=== PATIENT | male | born 1975 | race Two or more races ===

== ENCOUNTER 2018-11-02 20:41 | Emergency (ER) | payer SELFPAY ==
[~2018-11-02] VITALS: Ht 177.8 cm; Wt 115.0 kg
[2018-11-02] MEDS ORDERED: LORAZEPAM 2MG/ML CPJ ONE (20:57)
[2018-11-02] MEDS ORDERED: LORAZEPAM 2MG/ML CPJ IM ONE ×2 (21:15→22:00)
[2018-11-02] MEDS ORDERED: OLANZAPINE 10 MG/VIAL IM ONE ×2 (21:15→22:00)
[2018-11-02 22:38] VITALS: BP 150/100
== END 2018-11-02 22:42 | disposition left against medical advice (07) ==
LOC: ER 20:41 → CANBEDREQ 11-03 00:18
DX: R55 Syncope and collapse (principal); G92 Toxic encephalopathy; I12.0 Hypertensive chronic kidney disease with stage 5 chronic kidney disease or end stage renal disease; E11.22 Type 2 diabetes mellitus with diabetic chronic kidney disease; N18.6 End stage renal disease; N17.9 Acute kidney failure, unspecified; Z99.2 Dependence on renal dialysis
CPT/HCPCS: 71045; 93005; 96372; 99284; J2060; J3490

== ENCOUNTER 2019-06-14 21:06 | Emergency (ER) | payer SELFPAY | END 2019-06-14 21:31 | disposition left against medical advice (07) | LOC: ER 21:06 | DX: Z53.21 Procedure and treatment not carried out due to patient leaving prior to being seen by health care provider (principal) ==